=== PATIENT | male | born 1965 | race African-American/Black ===

== ENCOUNTER → 2016-05-18 | Day surgery (SDC) | payer MEDICAID ==
[~2016-05-18] VITALS: Ht 182.9 cm; Wt 111.1 kg
[~2016-05-18] MED LIST: AMLO10TA80 PO; ASPI-1035 PO; FENTANYL CITRATE/PF 50MCG/ML 2ML VIAL ONE; GABA-531 PO; HYDR25TA PO; IBUP-1510 PO; IODIXANOL 320MG/ML 100 ML BOTTLE IV ONE; LIDOCAINE HCL 1% 20ML VIAL (Pyxis) INJ ONE; MIDAZOLAM HCL 2 MG/2 ML VIAL ONE; OMEP20CA10 PO; RIVA20TA PO; SIMV20TA6 PO; TRAZ-132 PO
== END | disposition home or self-care (01) ==
LOC: CCL 11:33
PROVIDERS: ATTEND Specialist
DX: I82.403 Acute embolism and thrombosis of unspecified deep veins of lower extremity, bilateral (principal); I73.89 Other specified peripheral vascular diseases; I10 Essential (primary) hypertension; E78.5 Hyperlipidemia, unspecified; F17.210 Nicotine dependence, cigarettes, uncomplicated; Z79.01 Long term (current) use of anticoagulants
CPT/HCPCS: 36100; 37193; C1769; C1773; C1893; J1644; J2250; J3010; J3490; Q9967

== ENCOUNTER 2019-12-09 11:59 | Inpatient (IN) | payer MEDICAID, OTHER ==
[~2019-12-09] VITALS: Ht 182.9 cm; Wt 117.9 kg
[~2019-12-09 11:59] MED LIST changes: -ASPI-1035 PO; +ASPI-1497 PO; -FENTANYL CITRATE/PF 50MCG/ML 2ML VIAL ONE; -IBUP-1510 PO; +IBUP-2030 PO; -IODIXANOL 320MG/ML 100 ML BOTTLE IV ONE; -LIDOCAINE HCL 1% 20ML VIAL (Pyxis) INJ ONE; -MIDAZOLAM HCL 2 MG/2 ML VIAL ONE; -OMEP20CA10 PO; +OMEP20CA14 PO; +SIMV-43 PO; -SIMV20TA6 PO; -TRAZ-132 PO; +TRAZ-252 PO
[2019-12-09 13:20] LABS: BASOPHILS % 1.2 % (0.0-2.0); EOSINOPHILS % 4.4 % (0.0-5.0); HEMATOCRIT. 36.5 % (42.0-52.0); HEMOGLOBIN. 12.7 g/dL (14.0-18.0); LYMPHOCYTES % 12.5 % (20.0-50.0); MEAN CORPUSCULAR HEMOGLOBIN 29.7 pg (28.0-32.0); MEAN PLATELET VOLUME 7.2 fl (7.4-10.4); MONOCYTES % 8.1 % (2.0-8.0); NEUTROPHILS % 73.8 % (40.0-76.0); PLATELET 286 x1000/uL (130-400); RED BLOOD CELL COUNT 4.29 mill/uL (4.7-6.1); RED CELL DISTRIBUTION WIDTH 15.7 % (11.6-14.6)
[2019-12-09 13:24] LABS: CHLORIDE 112 mEq/L (98-107)
[2019-12-09 13:26] LABS: PROTHROMBIN TIME 10.3 sec (9.6-11.0)
[2019-12-09] MEDS ORDERED: ENOXAPARIN 100MG/ML SYR SUBCUT ONE (14:15)
[2019-12-09] MEDS ORDERED: MORPHINE SULFATE 4 MG/ML CPJ (NOT FOR IM USE) IV ONE (15:15)
[2019-12-09 18:46] VITALS: BP 123/81
[2019-12-09 20:00] VITALS: BP 118/77
[2019-12-09 20:41] VITALS: BP 118/77
[2019-12-09] MEDS: MORPHINE SULFATE 2 MG/ML CPJ (NOT FOR IM USE) IV PRN (21:56)
[2019-12-10] VITALS: BP 107/70
[2019-12-10] MEDS ORDERED: ENOXAPARIN 120MG/0.8ML SYR SUBCUT NR
[2019-12-10 04:00] VITALS: BP 104/79
[2019-12-10 08:00] VITALS: BP 108/79
[2019-12-10] MEDS ORDERED: HYDROCHLOROTHIAZIDE 25MG TABLET PO SCH (09:00)
[2019-12-10] MEDS ORDERED: AMLODIPINE 10MG TABLET PO SCH (09:00)
[2019-12-10] MEDS ORDERED: OMEPRAZOLE 20MG CAPSULE EXTENDED RELEASE PO SCH (09:00)
[2019-12-10] MEDS: ENOXAPARIN 120MG/0.8ML SYR SUBCUT SCH ×2 (09:26→21:30)
[2019-12-10] MEDS: MORPHINE SULFATE 2 MG/ML CPJ (NOT FOR IM USE) IV PRN (09:27)
[2019-12-10 12:00] VITALS: BP 132/80
[2019-12-10] MEDS ORDERED: HYDROCODONE/ACETAMINOPHEN 5/325MG TABLET PO PRN (12:45)
[2019-12-10] MEDS ORDERED: IOHEXOL-350 100 ML BOTTLE ONE (13:03)
[2019-12-10] MEDS: HYDROCODONE/ACETAMINOPHEN 5/325MG TABLET PO PRN ×2 (13:39→18:46)
[2019-12-10 16:00] VITALS: BP 136/97
[2019-12-10 16:10] LABS: *AMPHETAMINES SCREEN URINE NEGATIVE (NEGATIVE); *BARBITURATES SCREEN URINE NEGATIVE (NEGATIVE); *BENZODIAZEPINES SCREEN URINE NEGATIVE (NEGATIVE); *COCAINE SCREEN URINE PRESUMTIVE POSITIVE (NEGATIVE)
[2019-12-10 16:11] LABS: CANNABINOID URINE SCREEN PRESUMTIVE POSITIVE (NEGATIVE); METHADONE URINE SCREEN NEGATIVE (NEGATIVE); OPIATES URINE SCREEN PRESUMTIVE POSITIVE (NEGATIVE); PHENCYCLIDINE URINE SCREEN NEGATIVE (NEGATIVE)
[2019-12-10] MEDS ORDERED: AMLODIPINE 2.5MG TABLET PO SCH (17:00)
[2019-12-10] MEDS ORDERED: XAR15 MT (19:17)
[2019-12-10 20:00] VITALS: BP 111/83
[2019-12-11] VITALS: BP 136/91
[2019-12-11 04:00] VITALS: BP 115/74
[2019-12-11] MEDS: HYDROCODONE/ACETAMINOPHEN 5/325MG TABLET PO PRN (05:26)
[2019-12-11 06:27] VITALS: BP 125/80
[2019-12-11 07:35] LABS: BASOPHILS % 1.5 % (0.0-2.0); EOSINOPHILS % 4.9 % (0.0-5.0); HEMOGLOBIN. 12.6 g/dL (14.0-18.0); LYMPHOCYTES % 14.2 % (20.0-50.0); MEAN CORPUSCULAR HEMOGLOBIN 28.8 pg (28.0-32.0); MEAN CORPUSCULAR VOLUME 84.6 fL (80.0-94.0); MEAN PLATELET VOLUME 7.5 fl (7.4-10.4); MONOCYTES % 9.2 % (2.0-8.0); NEUTROPHILS % 70.2 % (40.0-76.0); PLATELET 353 x1000/uL (130-400); RED BLOOD CELL COUNT 4.37 mill/uL (4.7-6.1); RED CELL DISTRIBUTION WIDTH 15.4 % (11.6-14.6)
[2019-12-11 07:43] LABS: CHLORIDE 108 mEq/L (98-107)
[2019-12-11 08:00] VITALS: BP 127/80
[2019-12-11] MEDS ORDERED: ATORVASTATIN CALCIUM 10MG TABLET PO SCH (09:00)
== END 2019-12-11 08:31 | disposition home or self-care (01) | DRG 197 ==
LOC: ER 11:59 → 5WST 15:06 → EDBEDREQTM 15:16 → EDBEDREQ 15:16 → ENRESERV 16:50 → 5WST 18:31
PROVIDERS: ADMIT Internal Medicine; ATTEND Internal Medicine
DX: I82.402 Acute embolism and thrombosis of unspecified deep veins of left lower extremity (principal); E87.5 Hyperkalemia; I10 Essential (primary) hypertension; E78.5 Hyperlipidemia, unspecified; E78.00 Pure hypercholesterolemia, unspecified; F17.210 Nicotine dependence, cigarettes, uncomplicated; F12.90 Cannabis use, unspecified, uncomplicated; E66.9 Obesity, unspecified; Z88.8 Allergy status to other drugs, medicaments and biological substances; Z79.1 Long term (current) use of non-steroidal anti-inflammatories (NSAID); Z79.01 Long term (current) use of anticoagulants; Z79.82 Long term (current) use of aspirin; Z79.899 Other long term (current) drug therapy; Z72.89 Other problems related to lifestyle; Z68.35 Body mass index [BMI] 35.0-35.9, adult; Z71.6 Tobacco abuse counseling
CPT/HCPCS: 36415; 71275; 80048; 80053; 80305; 85025; 93005; 93922; 93971; 96374; 99285; J1650; J2270; Q9967

== ENCOUNTER 2025-01-24 08:48 | Emergency (ER) | payer MEDICAID ==
[~2025-01-24] VITALS: Ht 185.4 cm; Wt 111.0 kg
[~2025-01-24 08:48] MED LIST changes: +FAMO20TA8 MT; +GABA-1180 PO; -GABA-531 PO; -IBUP-2030 PO; +P20 MT; -RIVA20TA PO; -SIMV-43 PO; +SIMV-46 MT; +XAR15 MT
[2025-01-24 09:01] VITALS: O2SAT 99
[2025-01-24 10:28] LABS: CLARITY URINE TURBID (CLEAR); COLOR URINE DARK YELLOW (YELLOW); GLUCOSE URINE NEGATIVE (NEGATIVE); KETONES URINE TRACE (NEGATIVE); LEUKOCYTE ESTERASE URINE 2+ (NEGATIVE); NITRITE URINE POSITIVE (NEGATIVE); OCCULT BLOOD URINE 3+ (NEGATIVE); PH URINE 5.5 (4.5-8.0); PROTEIN URINE 3+ (NEGATIVE); SPECIFIC GRAVITY URINE 1.020 (1.005-1.030); UROBILINOGEN URINE 1.0 E.U./dL (0.2-1.0)
[2025-01-24 11:34] LABS: RBC URINE TNTC /hpf (0-2); WBC URINE TNTC /hpf (0-2)
[2025-01-24 11:35] LABS: BACTERIA URINE 2+; SQUAMOUS EPITHELIAL CELL URINE RARE /lpf (RARE/1+)
[2025-01-24 11:43] LABS: HEMATOCRIT. 43.4 % (42.0-52.0); HEMOGLOBIN. 14.6 g/dL (14.0-18.0); MEAN PLATELET VOLUME 7.9 fl (7.4-10.4); PLATELET 196 x1000/uL (130-400); RED BLOOD CELL COUNT 4.70 mill/uL (4.7-6.1); RED CELL DISTRIBUTION WIDTH 14.0 % (11.6-14.6)
[2025-01-24 11:55] LABS: CREATININE 1.2 mg/dL (0.6-1.3); UREA NITROGEN BLOOD 13 mg/dL (9-23)
[2025-01-24] MEDS ORDERED: IBUP-2030 MT (12:08)
[2025-01-24] MEDS ORDERED: SULF1TAB48 MT (12:08)
[2025-01-24] MEDS: KETOROLAC 30MG/ML VIAL IM ONE (12:09)
[2025-01-24 12:12] LABS: INR 1.0
[2025-01-24] MEDS: PHENAZOPYRIDINE HCL 100MG TABLET PO ONE (12:22)
[2025-01-24 14:09] VITALS: BP 131/79; PULSE 95; RESP 15; TEMP 37.1; O2SAT 99
[2025-01-24 17:27] LABS: BAND% 23.0 % (1.0-6.0); LYMPHOCYTES % MANUAL 5.0 % (20.0-50.0); MONOCYTES % MANUAL 14.0 % (2.0-8.0); NEUTROPHILS % MANUAL 58.0 % (45.0-75.0); PLATELET ESTIMATE NORMAL
== END 2025-01-24 14:10 | disposition home or self-care (01) ==
LOC: ER 08:48
DX: N39.0 Urinary tract infection, site not specified (principal); I10 Essential (primary) hypertension; Z79.899 Other long term (current) drug therapy; Z91.010 Allergy to peanuts; Z88.8 Allergy status to other drugs, medicaments and biological substances
CPT/HCPCS: 80048; 81003; 83690; 85025; 85610; 85730; 87086; 87186; 87077; 36415; 74176; 96372; 99285; J1885; Z7610; A4606